=== PATIENT | female | born 1975 | race Caucasian/White ===

== ENCOUNTER 2019-09-05 17:12 | Emergency (ER) | payer OTHER ==
[~2019-09-05] VITALS: Ht 162.6 cm; Wt 95.4 kg
[2019-09-05 17:38] VITALS: BP 137/77
[2019-09-05] MEDS ORDERED: FLUORESCEIN SODIUM 1MG/STRIP RIGHTEYE ONE (19:15)
[2019-09-05] MEDS ORDERED: TETRACAINE 0.5% OPHTH DROPS 4ML BOTHEYE ONE (20:00)
[2019-09-05] MEDS ORDERED: BACITRACIN 15GM TUBE TOP ONE (20:00)
[2019-09-05] MEDS ORDERED: BACITRACIN ZINC OINT UDPKT TOP NR (20:15)
[2019-09-05] MEDS ORDERED: TETRACAINE 0.5% OPHTH DROPS 4ML BOTHEYE NR (20:15)
[2019-09-05] MEDS ORDERED: TETRACAINE 0.5% OPHTH DROPS 4ML ONE (20:37)
[2019-09-05] MEDS ORDERED: BACITRACIN ZINC OINT UDPKT TOP ONE (20:38)
== END 2019-09-05 21:00 | disposition home or self-care (01) ==
LOC: ER 17:33
DX: S61.411A Laceration without foreign body of right hand, initial encounter (principal); H57.11 Ocular pain, right eye; N28.9 Disorder of kidney and ureter, unspecified; W25.XXXA Contact with sharp glass, initial encounter; Y93.89 Activity, other specified; Y92.9 Unspecified place or not applicable; Z98.890 Other specified postprocedural states
CPT/HCPCS: 99284